=== PATIENT | female | born 1975 | race African-American/Black ===

== ENCOUNTER → 2018-09-22 | Outpatient (CLI) | payer OTHER ==
[~2018-09-22] MED LIST: OXYBUTYNIN CHLOR5 M1 PO
--- NOTE | 2018-09-22 14:28 | Diagnostic Imaging Report ---
EXAM: Renal Ultrasound INDICATION: ^OVER ACTIVE BLADDER / UTI COMPARISON: None TECHNIQUE: Transverse and longitudinal images of the kidneys and bladder were obtained. FINDINGS: Right Kidney: Length: 9.5 cm Appearance: Normal echogenicity. Collecting system: No hydronephrosis Stones: None Cyst/Mass: None Left Kidney: Length: 9.1 cm Appearance: Normal echogenicity. Collecting system: No hydronephrosis Stones: None Cyst/Mass: None Bladder: No mass or calculi. Prevoid volume estimate of 66.8 cc. Bilateral ureteral jet seen. IMPRESSION: No renal calculi or hydronephrosis. Signed by: Venkatesh Green MD on 09/22/2018 2:25 PM
--- NOTE | 2018-09-22 14:42 | Diagnostic Imaging Report ---
Exam: KUB - 2 views Clinical History: Overactive bladder, UTI Comparison: None Findings: No radiographically apparent urinary calculi. Nonobstructive bowel gas pattern. The osseous structures appear unremarkable. No free air. Impression: No radiographically apparent urinary calculi. Signed by: Venkatesh Green MD on 09/22/2018 2:39 PM
== END ==
LOC: US 13:15
PROVIDERS: ATTEND Urology
DX: N32.81 Overactive bladder (principal); N39.0 Urinary tract infection, site not specified
CPT/HCPCS: 74018; 76770; 81025

== ENCOUNTER → 2018-10-21 | Day surgery (SDC) | payer OTHER ==
[~2018-10-21] MED LIST changes: +B&O 60MG R/S 60 MG SUPP PR ONE; +CEFTRIAXONE SOD 1 GM/NS 50 ML 50 ML IV ONE; +DEXAMETHASONE SOD PHOS INJ 4 MG/ML VIAL ONE; +FENTANYL CITRATE/PF 100MCG/2 ML INJ ONE; +IOPAMIDOL 610MG/1ML 300 MG/ML VIAL IV ONE; +LIDOCAINE HCL 2% LOCAL INJ 5 ML SDV VIAL INJ ONE; +MIDAZOLAM HCL 2 MG/2 ML VIAL ONE; +ONDANSETRON HCL INJ 2MG/ML 2ML 2 MG/ML VIAL ONE; +PROPOFOL IV EMULSION 10 MG/ML 20 ML VIAL ONE; +SEVOFLURANE INHAL SOLN 250 ML PEN BTL ONE
--- OUTSIDE RECORDS SUMMARY | 2018-10-21 11:13 | XMS REPORT | Clinical Summary ---
Author Author [facility] Address Unknown Phone Unavailable Care Team Providers Care Winch Driver Name Role Phone Asked, No Pcp PCP Unavailable Allergies Not on File Medications Not on file Active Problems Not on file Encounters Care Team Description Date Type Specialty Bin Hines Jr., MD Degeneration of intervertebral disc of lumbar region (Primary Dx) 10/20/2017 Transcribe Physical Therapy Orders after 10/20/2017 Social History Date Tobacco Use Types Packs/Day Years Used Never Assessed Sex Assigned at Date Recorded Not on file Industry Job Start Date Occupation Not on file Not on file Not on file Travel End Travel History Travel Start No recent travel history available. Last Filed Vital Signs Not on file Plan of Treatment Health Maintenance Due Date Last Done Comments CERVICAL CANCER SCREENING 1997 INFLUENZA VACCINE 09/22/2018 Results Not on fileafter 10/20/2017 Insurance Type Payer Benefit Subscriber ID Effective Phone Address Plan / Dates Group PPO AETNA AETNA PPO xxxxxxxxxx [id number] OPEN resent CHOICE Advance Directives For more information, please contact: [phone] Patient [employer] C[employer] Explanation Type Date Recorded Advance Directives, Living Will and Medical Power of Autocad Designer
[2018-10-21 14:55] VITALS: BP 154/98
--- NOTE | 2018-11-29 05:00 | Operative Report ---
DATE OF PROCEDURE: 10/21/2018 SURGEON: Americo Troncoso MD PREOPERATIVE DIAGNOSES: 1. Interstitial cystitis. 2. Urethral stenosis. 3. Urinary tract infection. POSTOPERATIVE DIAGNOSES: 1. Interstitial cystitis. 2. Urethral stenosis. 3. Urinary tract infection. 4. Mild cystocele. 5. Mild uterine prolapse. OPERATIONS PERFORMED: 1. Cystourethroscopy with calibration and dilation of urethral stenosis (separate procedure performed for the diagnosis of the urethral stenosis). 2. Cystourethroscopy with hydrodistention (separate procedure performed for the interstitial cystitis). 3. Cystourethroscopy with bilateral ureteral catheterization and retrograde ureteropyelography (separate procedure performed for the urinary tract infections). 4. Interpretation of retrograde ureteropyelography. 5. Supervision of fluoroscopy, no radiologist present. 6. Pelvic examination under anesthesia. ANESTHESIA: General. COMPLICATIONS: None. CLINICAL SUMMARY: Virgie Floyd is a 43-year-old woman, who has had voiding problems for the majority of her life. The patient has had a previous hydrodistention was seemed to help her for some time. She had a rare urinary tract infection. She is brought to the operating room to perform these procedures to see if we can help her symptomatology. She is aware of the risks of bleeding, infection, injury to adjacent structures, need for additional procedures and elected to proceed. OPERATIVE PROCEDURE IN DETAIL: Informed consent was verified. Virgie Floyd was properly identified, taken to the operating room, placed on the cystoscopy table in supine position. Anesthesia was uneventfully begun. The patient was then carefully gently repositioned in the dorsal lithotomy position with all pressure points well padded. Her genitalia were prepared and draped in usual sterile fashion. The cystoscope sheath with obturator in place was difficult to place into the patient's urethra due to stenosis. We calibrated the urethra at approximately 16 to 18 Stateless in size and progressively calibrated and dilated to 30-Stateless in size. We then were easily able to place the 22.5-Stateless cystoscope sheath into the patient's bladder and it was drained. Panendoscopy revealed grade 1-2 trabeculations, but no tumors, no stones, and no diverticula. No suspicious mucosal lesions were identified. Normally positioned configured ureteral orifices were identified. An 8-Stateless catheter was used to cannulate each ureter and retrograde ureteral pyelograms were performed. Interpretation of retrograde ureteropyelography contrast was instilled in retrograde fashion bilaterally. There were no tumors, no stones, no diverticula. Unobstructed drainage was observed fluoroscopically. The calices were sharp and delicate. Hydrodistention was then carried out to exactly 80 cm of water height and held in place for exactly 2 minutes by the clock. This revealed a bladder capacity under anesthesia of only 650 mL. Panendoscopy of the bladder following hydrodistention revealed glomerulations throughout the bladder, but there were no Hunner's ulcers. The patient's bladder was drained. Cystoscope was withdrawn. Pelvic examination revealed grade 1 cystocele with grade 1 uterine prolapse. There was no significant urethral hypermobility. No abnormal palpable pelvic masses could be appreciated. There were no obvious mucosal lesions. A belladonna and opium suppository were placed. The patient was uneventfully reversed from anesthesia and taken to recovery room in stable condition. There were no complications to the procedure. The patient tolerated the procedure well. Estimated blood loss was minimal. Explicit postop instructions were given. We will follow the patient up in the office. MD RADHA Uriarte/RABIA /[id number]
== END | disposition home or self-care (01) ==
LOC: OR 11:05
PROVIDERS: ATTEND Urology
DX: N30.10 Interstitial cystitis (chronic) without hematuria (principal); N32.81 Overactive bladder; Z88.1 Allergy status to other antibiotic agents; N35.92 Unspecified urethral stricture, female; N81.4 Uterovaginal prolapse, unspecified
CPT/HCPCS: 52281; 74420; 81025; C1758; J0696; J1100; J2001; J2250; J2405; J2704; J3010; Q9967